=== PATIENT | female | born 1930 | race Caucasian/White ===

== ENCOUNTER 2017-03-11 20:00 | Emergency (ER) | payer MEDICARE, MEDICAID ==
[2017-03-11] MEDS ORDERED: Sodium Chloride 0.9% 10 ML Syringe FLUSH PRN (20:07)
[2017-03-11] MEDS ORDERED: Albuterol/Ipratropium 3.0-0.5 MG/3 ML Neb Soln ONE (20:08)
[2017-03-11] MEDS ORDERED: Midazolam 1 MG/ML 2 ML SDV ONE (20:08)
[2017-03-11] MEDS ORDERED: Succinylcholine 200 MG/10 ML MDV ONE (20:32)
[2017-03-11] MEDS ORDERED: fentaNYL 100 MCG/2 ML SDV IVPUSH ONE (21:20)
[2017-03-11] MEDS ORDERED: Midazolam 1 MG/ML 2 ML SDV IVPUSH ONE ×2 (21:20→21:24)
[2017-03-11] MEDS ORDERED: Rocuronium 50 MG/5 ML Vial IVPUSH ONE (21:24)
--- NOTE | 2017-03-11 21:27 | EDM.PDOC ---
ED HPI GENERAL MEDICAL PROBLEM - General Chief Complaint: Respiratory Problem Stated Complaint: ER Time Seen by Provider: 03/11/17 20:05 Source of Information: Reports: Patient, EMS Notes Reviewed, Family, RN, RN Notes Reviewed History Limitations: Reports: No Limitations - History of Present Illness INITIAL COMMENTS - FREE TEXT/NARRATIVE: Patient presents the emergency room at [facility] via EMS for worsening shortness of breath. The patient states that her shortness of breath began about one week ago and has progressively gotten worse. The EMS was called this evening as the patient felt she could not get enough air or breath. Patient denies any recent upper respiratory infections. The patient denies any chest pain. The patient complains of a dry nonproductive cough. The patient had not had any issues with nausea vomiting or diarrhea. The patient complains of lightheadedness and dizziness. The patient states that she feels like she cannot breathe. Onset: Today, Sudden - Related Data Allergies Allergy/AdvReac Type Severity Reaction Status Date / Time ADALID Inhibitors Allergy Cough Verified 09/20/14 07:01 amlodipine besylate Allergy Swelling Verified 09/23/15 14:51 [From Norvasc] sertraline HCl [From Zoloft] AdvReac Muscle Verified 09/20/14 07:01 Aches Home Meds: Home Meds Acetaminophen [Tylenol] 2 tab PO Q8H PRN 03/28/13 [History] Aspirin [Gualberto Chewable Aspirin] 81 mg PO DAILY 03/28/13 [History] Carvedilol [Coreg] 25 mg PO BID 03/28/13 [History] Cholecalciferol (Vitamin D3) [Vitamin D3] 2,000 unit PO DAILY 03/28/13 [History] Ferrous Gluconate 325 mg PO DAILY 03/28/13 [History] Insulin Detemir [Levemir Flexpen] 28 units SQ BID 03/28/13 [History] Levothyroxine Sodium [Levoxyl] 75 mcg PO DAILY 03/28/13 [History] Magnesium Hydroxide [Milk of Magnesia] 400 mg PO DAILY PRN 03/28/13 [History] Magnesium Oxide [Magnesium] 500 mg PO DAILY 03/28/13 [History] Nitroglycerin [Nitrostat] 0.4 mg SL ASDIRECTED PRN 03/28/13 [History] Omeprazole [Prilosec] 40 mg PO ACBREAKFAST 03/28/13 [History] Sennosides/Docusate Sodium [Penny-Colace] 1 each PO TID 03/28/13 [History] Terazosin [Hytrin] 2 mg PO BID 03/28/13 [History] Venlafaxine [Effexor XR] 75 mg PO DAILY 03/28/13 [History] atorvaSTATin [Lipitor] 40 mg PO BEDTIME 03/28/13 [History] Isosorbide Mononitrate [Imdur] 120 mg PO DAILY #30 tab.er 03/31/13 [Rx] Valsartan [Diovan] 320 mg PO DAILY #30 tablet 03/31/13 [Rx] Triamcinolone Acetonide [Triamcinolone Acetonide 0.1% Crm] 1 applic TOP BID [History] Acetaminophen with Codeine [Tylenol with Codeine #3 Tablet] 1 each PO BEDTIME PRN 03/25/14 [History] Gabapentin [Neurontin] 300 mg PO ACDIN 03/25/14 [History] Gabapentin [Neurontin] 600 mg PO BEDTIME 03/25/14 [History] Lactulose [Chronulac] 30 ml PO BID 03/25/14 [History] Nitroglycerin [Nitro-Dur 0.6 MG/Hr] 0.6 mg TRDERM DAILY 03/25/14 [History] amLODIPine [Norvasc] 5 mg PO DAILY 03/25/14 [History] Clopidogrel [Plavix] 75 mg PO DAILY 09/23/15 [History] Furosemide [Lasix] 40 mg PO DAILY 09/23/15 [History] Insulin Aspart [NovoLOG] 15 unit SUBCUT TIDMEALS 09/23/15 [History] Social & Family History - Tobacco Use Smoking Status *Q: Never Smoker Second Hand Smoke Exposure: Yes - Alcohol Use Days Per Week of Alcohol Use: 0 - Recreational Drug Use Recreational Drug Use: No ED ROS GENERAL - Review of Systems Review Of Systems: See Below Constitutional: Reports: Weakness. Denies: Fever, Chills Respiratory: Reports: Shortness of Breath, Cough Cardiovascular: Reports: Lightheadedness. Denies: Chest Pain, Palpitations GI/Abdominal: Denies: Abdominal Pain, Nausea, Vomiting Skin: Reports: No Symptoms Neurological: Reports: Dizziness. Denies: Headache, Numbness, Paresthesia, Tingling ED EXAM, GENERAL - Physical Exam Exam: See Below Exam Limited By: No Limitations General Appearance: Alert, Severe Distress, Obese Head: Atraumatic, Normocephalic Respiratory/Chest: Respiratory Distress, Decreased Breath Sounds, Retractions Cardiovascular: Regular Rate, Rhythm Peripheral Pulses: 1+: Radial (L), Radial (R) GI/Abdominal: Soft, Non-Tender, Abnormal Bowel Sounds (Hypoactive) Extremities: Pallor Neurological: Alert Psychiatric: Anxious Skin Exam: Cool, Pallor ED RESPIRATORY PROCEDURES - Endotracheal Intubation Time of Intubation: 20:38 ET Intubation Indication: Respiratory Failure Preparation: Suction, Balloon Tested, BVM Set Up, Difficult Airway Equip Airway Assessment: Obese Pre-Oxygenation: Assisted with BVM, 100% FiO2 Anesthesia Meds: Fentanyl, Midazolam, Succinylcholine Placement: Orotracheal Cords Visualized: Yes ETT Size In mm: 7.5 Number of Attempts: 1 Confirmed By: CO2 Indicator, Bilateral Breath Sounds Tube Secured By: Other (Radha Payton NRP) Endotracheal Intubation Comment: Patient intubated by Radha Payton Hospital Pharmacist. No complications. Intubated successfully on attempt 1. CXR for verification. Course - Orders/Labs/Meds Orders: Active Orders 24 hr Category Date Time Status EKG Documentation Completion [RC] STAT Care 03/11/17 20:07 Ordered Insert Urinary Catheter [OM.PC] Stat Care 03/11/17 21:30 Ordered Intubation [RT Airway Intubation] [RC] ASDIRECTED Care 03/11/17 21:26 Active Urinary Catheter Assessment [RC] ASDIRECTED Care 03/11/17 21:25 Active Chest 1V Frontal [CR] Stat Exams 03/11/17 20:07 Taken Sodium Chloride 0.9% [Saline Flush] Med 03/11/17 20:07 Active 10 ml FLUSH ASDIRECTED PRN ED Rapid Sequence Intubation Reflex [OM.PC] PER UNIT Oth 03/11/17 21:30 Ordered ROUTINE Peripheral IV Insertion Adult [OM.PC] Routine Oth 03/11/17 20:07 Ordered Medication Orders Sodium Chloride (Saline Flush) 10 ml FLUSH ASDIRECTED PRN PRN Reason: Keep Vein Open Labs: Laboratory Tests 03/11/17 03/11/17 03/11/17 Range/Units 20:32 20:50 20:50 WBC 7.7 (4.0-10.0) x10^3/uL RBC 3.80 L (4.00-5.50) x10^6/uL Hgb 11.9 L (12.0-16.0) g/dL Hct 36.8 (33.0-47.0) % MCV 96.8 H (78.0-93.0) fL MCH 31.3 (26.0-32.0) pg MCHC 32.3 (32.0-36.0) g/dL RDW Coeff of Carlin 13.6 (10.0-15.0) % Plt Count 227 D (130-400) x10^3/uL Neut % (Auto) 60.9 (50.0-80.0) % Lymph % (Auto) 29.1 (25.0-50.0) % Harris % (Auto) 7.1 (2.0-11.0) % Eos % (Auto) 2.6 (0.0-4.0) % Baso % (Auto) 0.3 (0.2-1.2) % POC ABG pH 7.003 L* (7.35-7.45) POC ABG pCO2 116 H* (35-45) mmHG POC ABG pO2 71 L (80-105) mmHG POC ABG HCO3 29 H (22-26) mmol/L POC ABG Total CO2 32 H (23-27) mmol/L POC ABG O2 Sat 81 L (95-98) % POC ABG Base Excess -3 L (-2-3) mmol/L POC FiO2 0.60 Sodium 139 (136-145) mmol/L Potassium 5.5 H (3.5-5.1) mmol/L Chloride 102 (98-107) mmol/L Carbon Dioxide 28 (21-32) mmol/L BUN 29 H (7-18) mg/dL Creatinine 1.4 H (0.55-1.02) mg/dL Est Cr Clr Drug Dosing TNP Estimated GFR (MDRD) 36 Glucose 417 H* (74-106) mg/dL Lactic Acid (0.4-2.0) mmol/L Calcium 8.0 L (8.5-10.1) mg/dL Corrected Calcium 8.48 L (8.5-10.1) mg/dL Total Bilirubin 0.2 (0.2-1.0) mg/dL AST 17 (15-37) U/L ALT 24 (14-59) U/L Alkaline Phosphatase 100 (46-116) U/L Creatine Kinase 107 (26-192) U/L Creatine Kinase Index 2.2 (0.0-4.0) % CK-MB (CK-2) 2.4 (0.0-3.6) ng/mL Troponin I 0.036 (<=0.056) ng/mL C-Reactive Protein < 0.2 (<=0.9) mg/dL NT-Pro-B Natriuret Pep 392 (<=450) pg/mL Total Protein 7.0 (6.4-8.2) g/dL Albumin 3.4 (3.4-5.0) g/dL Globulin 3.6 Albumin/Globulin Ratio 0.94 POC Result Comm Called critical res 03/11/17 Range/Units 20:50 WBC (4.0-10.0) x10^3/uL RBC (4.00-5.50) x10^6/uL Hgb (12.0-16.0) g/dL Hct (33.0-47.0) % MCV (78.0-93.0) fL MCH (26.0-32.0) pg MCHC (32.0-36.0) g/dL RDW Coeff of Carlin (10.0-15.0) % Plt Count (130-400) x10^3/uL Neut % (Auto) (50.0-80.0) % Lymph % (Auto) (25.0-50.0) % Harris % (Auto) (2.0-11.0) % Eos % (Auto) (0.0-4.0) % Baso % (Auto) (0.2-1.2) % POC ABG pH (7.35-7.45) POC ABG pCO2 (35-45) mmHG POC ABG pO2 (80-105) mmHG POC ABG HCO3 (22-26) mmol/L POC ABG Total CO2 (23-27) mmol/L POC ABG O2 Sat (95-98) % POC ABG Base Excess (-2-3) mmol/L POC FiO2 Sodium (136-145) mmol/L Potassium (3.5-5.1) mmol/L Chloride (98-107) mmol/L Carbon Dioxide (21-32) mmol/L BUN (7-18) mg/dL Creatinine (0.55-1.02) mg/dL Est Cr Clr Drug Dosing Estimated GFR (MDRD) Glucose (74-106) mg/dL Lactic Acid 2.6 H* (0.4-2.0) mmol/L Calcium (8.5-10.1) mg/dL Corrected Calcium (8.5-10.1) mg/dL Total Bilirubin (0.2-1.0) mg/dL AST (15-37) U/L ALT (14-59) U/L Alkaline Phosphatase (46-116) U/L Creatine Kinase (26-192) U/L Creatine Kinase Index (0.0-4.0) % CK-MB (CK-2) (0.0-3.6) ng/mL Troponin I (<=0.056) ng/mL C-Reactive Protein (<=0.9) mg/dL NT-Pro-B Natriuret Pep (<=450) pg/mL Total Protein (6.4-8.2) g/dL Albumin (3.4-5.0) g/dL Globulin Albumin/Globulin Ratio POC Result Comm Meds: Medications Generic Name Dose Route Start Last Admin Trade Name Frederick PRN Reason Stop Dose Admin Sodium Chloride 10 ml 03/11/17 20:07 Saline Flush FLUSH ASDIRECTED PRN Keep Vein Open Discontinued Medications Generic Name Dose Route Start Last Admin Trade Name Frederick PRN Reason Stop Dose Admin Fentanyl 100 mcg 03/11/17 21:20 Sublimaze IVPUSH 03/11/17 21:21 ONETIME ONE Midazolam HCl 2 mg 03/11/17 21:20 Versed 1 Mg/Ml IVPUSH 03/11/17 21:21 ONETIME ONE Midazolam HCl 2 mg 03/11/17 21:24 Versed 1 Mg/Ml IVPUSH 03/11/17 21:25 ONETIME ONE Rocuronium [place] 50 mg 03/11/17 21:24 Zemuron IVPUSH 03/11/17 21:25 ONETIME ONE Rocuronium [place] Confirm 03/11/17 21:37 Zemuron Administered 03/11/17 21:38 Dose 50 mg .ROUTE .STK-MED ONE Succinylcholine Chloride Confirm 03/11/17 20:32 Quelicin Administered 03/11/17 20:33 Dose 200 mg .ROUTE .STK-MED ONE - Re-Assessments/Exams Free Text/Narrative Re-Assessment/Exam: 03/11/17 20:38 Patient respiratory status declined requiring airway intubation. See nursing notes. Family at bedside. Risks and benefits discussed with family. They agreed with intubation. Departure - Departure Time of Disposition: 22:17 Disposition: DC/Tfer to [facility] 02 Condition: Fair Clinical Impression: Acute respiratory failure with hypercapnia - Discharge Information Forms: Interfacility Transfer [facility] ED Communication - ED Communication Date/Time Date: 03/11/17 Time Called: 22:06 - Discussed Case With (1) Discussed Case With (1): Admitting Provider (Dr. Davidson, ICU Plate Drying Machine Tender. Report Given. Patient accepted. Patient will be sent ALS ground.) - Conversation Summary Admitting Provider Agreed to Patient's Admission: Yes - Problem List Review Problem List Initiated/Reviewed/Updated: Yes - My Orders Last 24 Hours: My Active Orders 03/11/17 20:07 EKG Documentation Completion [RC] STAT Chest 1V Frontal [CR] Stat Sodium Chloride 0.9% [Saline Flush] 10 ml FLUSH ASDIRECTED PRN Peripheral IV Insertion Adult [OM.PC] Routine 03/11/17 21:25 Urinary Catheter Assessment [RC] ASDIRECTED 03/11/17 21:26 Intubation [RT Airway Intubation] [RC] ASDIRECTED 03/11/17 21:30 Insert Urinary Catheter [OM.PC] Stat ED Rapid Sequence Intubation Reflex [OM.PC] PER UNIT ROUTINE - Assessment/Plan Last 24 Hours: My Active Orders 03/11/17 20:07 EKG Documentation Completion [RC] STAT Chest 1V Frontal [CR] Stat Sodium Chloride 0.9% [Saline Flush] 10 ml FLUSH ASDIRECTED PRN Peripheral IV Insertion Adult [OM.PC] Routine 03/11/17 21:25 Urinary Catheter Assessment [RC] ASDIRECTED 03/11/17 21:26 Intubation [RT Airway Intubation] [RC] ASDIRECTED 03/11/17 21:30 Insert Urinary Catheter [OM.PC] Stat ED Rapid Sequence Intubation Reflex [OM.PC] PER UNIT ROUTINE Plan: Case discussed with Dr. Davidson, ICU academic administrator. The patient will be transferred to [facility] via ALS ground. Report was given by myself to the accepting provider. All questions answered. No further orders received.
[2017-03-11 21:37] LABS: CHLORIDE,CL 102 mmol/L (98-107); SODIUM,NA 139 mmol/L (136-145)
[2017-03-11] MEDS ORDERED: Rocuronium 50 MG/5 ML Vial ONE (21:37)
[2017-03-12] MEDS ORDERED: Midazolam 1 MG/ML 2 ML SDV ONE (00:39)
[2017-03-12] MEDS ORDERED: fentaNYL 100 MCG/2 ML SDV ONE (00:40)
== END 2017-03-11 22:31 | disposition short-term general hospital (02) ==
LOC: VM.ED 20:00
DX: J96.02 Acute respiratory failure with hypercapnia (principal); Z79.82 Long term (current) use of aspirin; Z79.899 Other long term (current) drug therapy; Z88.8 Allergy status to other drugs, medicaments and biological substances; Z77.22 Contact with and (suspected) exposure to environmental tobacco smoke (acute) (chronic)
CPT/HCPCS: 31500; 36415; 51702; 71045; 80053; 82550; 82553; 82803; 83605; 83880; 84484; 85025; 86140; 87804; 96365; 96366; 96375; 96376; 99285; 99291; 99292; J0330; J2250; J3010

== ENCOUNTER 2017-06-25 14:15 | Emergency (ER) | payer MEDICARE, MEDICAID ==
[2017-06-25] MEDS ORDERED: Sodium Chloride 0.9% 10 ML Syringe FLUSH PRN (14:27)
--- NOTE | 2017-06-25 14:27 | EDM.PDOC ---
ED HPI GENERAL MEDICAL PROBLEM - General Chief Complaint: Chest Pain Stated Complaint: CHEST PAIN Time Seen by Provider: 06/25/17 14:21 Source of Information: Reports: Patient, Family, RN, RN Notes Reviewed History Limitations: Reports: No Limitations - History of Present Illness INITIAL COMMENTS - FREE TEXT/NARRATIVE: Patient presents to the ED at [facility] with an acute onset of left upper chest pain that started earlier today. Patient states she was merely sitting and watching TV when the pain started. She states the pain has been on/off for the past couple of months. She is concerned because she has a history of acute MO within the past 6 moths. She is taking her home medications as directed. She describes the pain as sharp and stabbing. Patient does worsen with deep breathing. She denies any cough or SOB. She denies any radiation of the pain. Onset: Today, Sudden Onset Date: 06/25/17 Duration: Waxing/Waning Location: Reports: Chest (Left upper) Quality: Reports: Sharp, Stabbing Severity: Mild Improves with: Reports: Rest Worsens with: Reports: Breathing Context: Denies: Exercise, Sick Contact, Trauma Associated Symptoms: Reports: No Other Symptoms Treatments ORNAMENT SETTER: Reports: Other (see below) (None) Left Chest Pain Score (Numeric/FACES): 7 - Related Data Allergies Allergy/AdvReac Type Severity Reaction Status Date / Time ADALID Inhibitors Allergy Cough Verified 09/20/14 07:01 amlodipine besylate Allergy Swelling Verified 09/23/15 14:51 [From Norvasc] sertraline HCl [From Zoloft] AdvReac Muscle Verified 09/20/14 07:01 Aches Home Meds: Home Meds Acetaminophen [Tylenol] 2 tab PO Q8H PRN 03/28/13 [History] Aspirin [Gualberto Chewable Aspirin] 81 mg PO DAILY 03/28/13 [History] Carvedilol [Coreg] 25 mg PO BID 03/28/13 [History] Cholecalciferol (Vitamin D3) [Vitamin D3] 2,000 unit PO DAILY 03/28/13 [History] Ferrous Gluconate 325 mg PO DAILY 03/28/13 [History] Insulin Detemir [Levemir Flexpen] 28 units SQ BID 03/28/13 [History] Levothyroxine Sodium [Levoxyl] 75 mcg PO DAILY 03/28/13 [History] Magnesium Hydroxide [Milk of Magnesia] 400 mg PO DAILY PRN 03/28/13 [History] Magnesium Oxide [Magnesium] 500 mg PO DAILY 03/28/13 [History] Nitroglycerin [Nitrostat] 0.4 mg SL ASDIRECTED PRN 03/28/13 [History] Omeprazole [Prilosec] 40 mg PO ACBREAKFAST 03/28/13 [History] Sennosides/Docusate Sodium [Penny-Colace] 1 each PO TID 03/28/13 [History] Terazosin [Hytrin] 2 mg PO BID 03/28/13 [History] Venlafaxine [Effexor XR] 75 mg PO DAILY 03/28/13 [History] atorvaSTATin [Lipitor] 40 mg PO BEDTIME 03/28/13 [History] Isosorbide Mononitrate [Imdur] 120 mg PO DAILY #30 tab.er 03/31/13 [Rx] Valsartan [Diovan] 320 mg PO DAILY #30 tablet 03/31/13 [Rx] Triamcinolone Acetonide [Triamcinolone Acetonide 0.1% Crm] 1 applic TOP BID [History] Acetaminophen with Codeine [Tylenol with Codeine #3 Tablet] 1 each PO BEDTIME PRN 03/25/14 [History] Gabapentin [Neurontin] 300 mg PO ACDIN 03/25/14 [History] Gabapentin [Neurontin] 600 mg PO BEDTIME 03/25/14 [History] Lactulose [Chronulac] 30 ml PO BID 03/25/14 [History] Nitroglycerin [Nitro-Dur 0.6 MG/Hr] 0.6 mg TRDERM DAILY 03/25/14 [History] amLODIPine [Norvasc] 5 mg PO DAILY 03/25/14 [History] Clopidogrel [Plavix] 75 mg PO DAILY 09/23/15 [History] Furosemide [Lasix] 40 mg PO DAILY 09/23/15 [History] Insulin Aspart [NovoLOG] 15 unit SUBCUT TIDMEALS 09/23/15 [History] Social & Family History - Tobacco Use Smoking Status *Q: Never Smoker Second Hand Smoke Exposure: Yes - Alcohol Use Days Per Week of Alcohol Use: 0 - Recreational Drug Use Recreational Drug Use: No ED ROS GENERAL - Review of Systems Review Of Systems: See Below Constitutional: Denies: Fever, Chills, Weakness Respiratory: Denies: Shortness of Breath, Cough Cardiovascular: Reports: Chest Pain. Denies: Edema, Lightheadedness, Palpitations GI/Abdominal: Denies: Abdominal Pain, Nausea, Vomiting Musculoskeletal: Denies: Shoulder Pain, Back Pain Skin: Reports: No Symptoms Neurological: Reports: No Symptoms. Denies: Dizziness, Headache ED EXAM, GENERAL - Physical Exam Exam: See Below Exam Limited By: No Limitations General Appearance: Alert, No Apparent Distress Respiratory/Chest: No Respiratory Distress, Lungs Clear, Normal Breath Sounds, Other (Tenderness to left upper anterior chest wall; pain is reproducable) Cardiovascular: Normal Peripheral Pulses, Regular Rate, Rhythm Peripheral Pulses: 2+: Radial (L), Radial (R) GI/Abdominal: Normal Bowel Sounds, Soft, Non-Tender Back Exam: Normal Inspection Extremities: Normal Inspection Neurological: Alert, Oriented Skin Exam: Warm, Dry, Intact, Normal Color EKG INTERPRETATION EKG Date: 06/25/17 Time: 14:22 Rhythm: NSR Rate (Beats/Min): 58 [place]: Normal P-Wave: Present QRS: Normal ST-T: Normal QT: Normal KS/PQ Interval: 0.16 Comparison: No Change EKG Interpretation Comments: 1. Sinus Bradycardia 2. Moderate IVCD 3. Nonspecific T-wave abnormality Course - Vital Signs Last Recorded V/S: Last Vital Signs Temp 36.2 C 06/25/17 14:15 Pulse 62 06/25/17 14:15 Resp 16 06/25/17 14:15 BP 178/54 H 06/25/17 14:15 Pulse Ox 96 06/25/17 14:15 - Orders/Labs/Meds Labs: Laboratory Tests 06/25/17 06/25/17 06/25/17 Range/Units 14:34 14:34 14:34 WBC 6.3 (4.0-10.0) x10^3/uL RBC 3.75 L (4.00-5.50) x10^6/uL Hgb 11.6 L (12.0-16.0) g/dL Hct 35.4 (33.0-47.0) % MCV 94.4 H (78.0-93.0) fL MCH 30.9 (26.0-32.0) pg MCHC 32.8 (32.0-36.0) g/dL RDW Coeff of Carlin 13.6 (10.0-15.0) % Plt Count 225 (130-400) x10^3/uL Add Manual Diff Yes Neutrophils % (Manual) 75 (50-80) % Band Neutrophils % 4 (0-6) % Lymphocytes % (Manual) 15 L (25-50) % Monocytes % (Manual) 1 L (2-11) % Eosinophils % (Manual) 4 (0-4) % Metamyelocytes % 1 H (0) % Platelet Estimate Adequate PT 9.9 (9.6-11.4) SEC INR 0.9 L (2.0-3.5) D-Dimer, Quantitative 2.11 H (<=0.58) mg/LFEU Sodium 135 L (136-145) mmol/L Potassium 4.6 (3.5-5.1) mmol/L Chloride 100 (98-107) mmol/L Carbon Dioxide 27 (21-32) mmol/L Anion Gap 12.6 (10-20) mmol/L BUN 18 (7-18) mg/dL Creatinine 1.2 H (0.55-1.02) mg/dL Est Cr Clr Drug Dosing TNP Estimated GFR (MDRD) 43 Glucose 383 H (74-106) mg/dL Calcium 8.2 L (8.5-10.1) mg/dL Corrected Calcium 8.92 (8.5-10.1) mg/dL Total Bilirubin 0.3 (0.2-1.0) mg/dL AST 18 (15-37) U/L ALT 25 (14-59) U/L Alkaline Phosphatase 92 (46-116) U/L Creatine Kinase 58 (26-192) U/L Troponin I < 0.017 (<=0.056) ng/mL Total Protein 6.8 (6.4-8.2) g/dL Albumin 3.1 L (3.4-5.0) g/dL Globulin 3.7 g/dL Albumin/Globulin Ratio 0.84 Meds: Medications Discontinued Medications Generic Name Dose Route Start Last Admin Trade Name Freq PRN Reason Stop Dose Admin Sodium Chloride 10 ml 06/25/17 14:27 Saline Flush FLUSH ASDIRECTED PRN Keep Vein Open - Radiology Interpretation Free Text/Narrative:: CXR: Left 5th rib fracture, age undetermined See scanned report in EMR Departure - Departure Time of Disposition: 16:09 Disposition: Home, Self-Care 01 Reason for Transfer *Q: Other Condition: Good Clinical Impression: Rib fracture Qualifiers: Encounter type: initial encounter Rib fracture type: single rib Fracture type: closed Laterality: left Qualified Code(s): S22.32XA - Fracture of one rib, left side, initial encounter for closed fracture Instructions: Rib Fracture Referrals: Kami Hernandez, [Primary Care Provider] - Forms: ED Department Discharge Additional Instructions: 1. Stay well hydrated and rest 2. Take extra precautions to not fall or re-injure the ribs 3. Take deep breaths as able to help prevent pneumonia, etc. 4. May take Tylenol for pain; try warm heating pad 5. See your Primary as symptoms warrant 6. Call us with any questions/concerns - Problem List Review Problem List Initiated/Reviewed/Updated: Yes - Assessment/Plan Assessment:: Left fifth rib fracture Plan: Xray and labs discussed with patient. She does not remember any trauma to the chest, but states it is possible. She has had a couple of falls over the past month or so. I did discuss the elevated D-Dimer with the patient and possibility of a blood clot. Patient declined to have a CT of her chest done. I recommended she visit with her PCP about this, she verbalized understanding. Discussed routine pathology of fracture and normal coarse of healing. Recommend repeat xray in 6-8 weeks to check for healing. See PCP as symptoms warrant.
[2017-06-25 14:54] VITALS: BP 178/54
[2017-06-26 09:48] LABS: CHLORIDE,CL 100 mmol/L (98-107); SODIUM,NA 135 mmol/L (136-145)
== END 2017-06-25 16:15 | disposition home or self-care (01) ==
LOC: VM.ED 14:15
DX: S22.32XA Fracture of one rib, left side, initial encounter for closed fracture (principal); Z79.899 Other long term (current) drug therapy; Z79.82 Long term (current) use of aspirin; Z79.4 Long term (current) use of insulin; X58.XXXA Exposure to other specified factors, initial encounter
CPT/HCPCS: 36415; 71046; 80053; 82550; 84484; 85025; 85379; 85610; 93005; 99285

== ENCOUNTER 2017-08-11 11:36 | Emergency (ER) | payer MEDICARE, MEDICAID ==
[2017-08-11 11:39] VITALS: BP 163/41
--- NOTE | 2017-08-11 12:01 | EDM.PDOC ---
ED HPI GENERAL MEDICAL PROBLEM - General Chief Complaint: General Stated Complaint: BLACK TOE Time Seen by Provider: 08/11/17 11:48 Source of Information: Reports: Patient, RN, RN Notes Reviewed History Limitations: Reports: No Limitations - History of Present Illness INITIAL COMMENTS - FREE TEXT/NARRATIVE: Patient presents to the ED at [facility] with concerns of a toe infection. Patient states she noticed the tip of the 2nd digit on the right foot is black. She recently was seen by Podiatry. She states the [employer] may have nicked the skin. She denies any pain to the affected site. No trouble with ambulation. No fevers or chills. Patient states she just noticed the spot on her toe this AM. She is not sure how long it has been there. Onset: Unknown/Unsure Left 2-Long toe Pain Score (Numeric/FACES): 9 - Related Data Allergies Allergy/AdvReac Type Severity Reaction Status Date / Time ADALID Inhibitors Allergy Cough Verified 08/11/17 11:38 amlodipine besylate Allergy Swelling Verified 08/11/17 11:38 [From Norvasc] sertraline HCl [From Zoloft] AdvReac Muscle Verified 08/11/17 11:38 Aches Home Meds: Home Meds Acetaminophen [Tylenol] 2 tab PO Q8H PRN 03/28/13 [History] Aspirin [Gualberto Chewable Aspirin] 81 mg PO DAILY 03/28/13 [History] Carvedilol [Coreg] 25 mg PO BID 03/28/13 [History] Cholecalciferol (Vitamin D3) [Vitamin D3] 2,000 unit PO DAILY 03/28/13 [History] Ferrous Gluconate 325 mg PO DAILY 03/28/13 [History] Insulin Detemir [Levemir Flexpen] 28 units SQ BID 03/28/13 [History] Levothyroxine Sodium [Levoxyl] 75 mcg PO DAILY 03/28/13 [History] Magnesium Hydroxide [Milk of Magnesia] 400 mg PO DAILY PRN 03/28/13 [History] Magnesium Oxide [Magnesium] 500 mg PO DAILY 03/28/13 [History] Nitroglycerin [Nitrostat] 0.4 mg SL ASDIRECTED PRN 03/28/13 [History] Omeprazole [Prilosec] 40 mg PO ACBREAKFAST 03/28/13 [History] Sennosides/Docusate Sodium [Penny-Colace] 1 each PO TID 03/28/13 [History] Terazosin [Hytrin] 2 mg PO BID 03/28/13 [History] Venlafaxine [Effexor XR] 75 mg PO DAILY 03/28/13 [History] atorvaSTATin [Lipitor] 40 mg PO BEDTIME 03/28/13 [History] Isosorbide Mononitrate [Imdur] 120 mg PO DAILY #30 tab.er 03/31/13 [Rx] Valsartan [Diovan] 320 mg PO DAILY #30 tablet 03/31/13 [Rx] Triamcinolone Acetonide [Triamcinolone Acetonide 0.1% Crm] 1 applic TOP BID [History] Acetaminophen with Codeine [Tylenol with Codeine #3 Tablet] 1 each PO BEDTIME PRN 03/25/14 [History] Gabapentin [Neurontin] 300 mg PO ACDIN 03/25/14 [History] Gabapentin [Neurontin] 600 mg PO BEDTIME 03/25/14 [History] Lactulose [Chronulac] 30 ml PO BID 03/25/14 [History] Nitroglycerin [Nitro-Dur 0.6 MG/Hr] 0.6 mg TRDERM DAILY 03/25/14 [History] amLODIPine [Norvasc] 5 mg PO DAILY 03/25/14 [History] Clopidogrel [Plavix] 75 mg PO DAILY 09/23/15 [History] Furosemide [Lasix] 40 mg PO DAILY 09/23/15 [History] Insulin Aspart [NovoLOG] 15 unit SUBCUT TIDMEALS 09/23/15 [History] Cephalexin [Keflex] 1 cap PO Q12H 7 Days #14 capsule 08/11/17 [Rx] Social & Family History - Tobacco Use Smoking Status *Q: Never Smoker - Recreational Drug Use Recreational Drug Use: No ED ROS GENERAL - Review of Systems Review Of Systems: See Below Constitutional: Denies: Fever, Chills, Weakness Respiratory: Denies: Shortness of Breath, Cough Cardiovascular: Denies: Chest Pain, Palpitations Skin: Reports: Change in Color (2nd digit right foot) Neurological: Reports: No Symptoms. Denies: Numbness, Paresthesia, Tingling ED EXAM, GENERAL - Physical Exam Exam: See Below Exam Limited By: No Limitations General Appearance: Alert, No Apparent Distress Respiratory/Chest: No Respiratory Distress, Lungs Clear, Normal Breath Sounds Cardiovascular: Normal Peripheral Pulses, Regular Rate, Rhythm Peripheral Pulses: 2+: Radial (L), Radial (R) Extremities: Normal Inspection Neurological: Alert, Oriented Skin Exam: Warm, Dry, Intact, Normal Color, Other (Patient has what looks like a blood blister on the tip of the 2nd digit right foot; no evidence of infection ; no drainage; area is slightly tender to palpation; rest of toe/foot normal) Course - Vital Signs Last Recorded V/S: Last Vital Signs Temp 35.1 C L 08/11/17 11:38 Pulse 58 L 08/11/17 11:38 Resp 18 08/11/17 11:38 BP 163/41 H 08/11/17 11:38 Pulse Ox 99 08/11/17 11:38 Departure - Departure Time of Disposition: 12:01 Disposition: Home, Self-Care 01 Condition: Good Clinical Impression: Blood blister - Discharge Information Prescriptions: Cephalexin [Keflex] 1 cap PO Q12H 7 Days #14 capsule Instructions: Cephalexin tablets or capsules Referrals: Kami Hernandez DO [Primary Care Provider] - Additional Instructions: 1. Stay well hydrated and rest 2. Take antibiotics for the full coarse, even if you are feeling better 3. May soak right foot in Epsom salt couple times a day for the next few days 4. If skin breaks open, cover with a bandaid 5. See Dr. Hernandez in clinic next week for a recheck 6. Call us with any questions or concerns - Problem List Review Problem List Initiated/Reviewed/Updated: Yes
== END 2017-08-11 12:22 | disposition home or self-care (01) ==
LOC: VM.ED 11:36
DX: S90.424A Blister (nonthermal), right lesser toe(s), initial encounter (principal); X58.XXXA Exposure to other specified factors, initial encounter; Z88.8 Allergy status to other drugs, medicaments and biological substances; Z88.2 Allergy status to sulfonamides
CPT/HCPCS: 99283

== ENCOUNTER 2019-07-15 05:21 | Emergency (ER) | payer MEDICARE, MEDICAID, OTHER ==
[~2019-07-15 05:21] MED LIST: Albuterol/Ipratropium 3.0-0.5 MG/3 ML Neb Soln ONE; Etomidate 2 MG/ML 10 ML SDV ONE; fentaNYL 100 MCG/2 ML SDV ONE
[2019-07-15] MEDS ORDERED: Furosemide 40 MG/4 ML VIAL ONE (05:47)
[2019-07-15] MEDS ORDERED: Sodium Chloride 0.9% 10 ML Syringe FLUSH PRN (05:55)
[2019-07-15] MEDS ORDERED: Sodium Chloride 0.9% 1,000 ML IV ONE (06:17)
[2019-07-15] MEDS ORDERED: Succinylcholine 200 MG/10 ML MDV ONE (06:18)
[2019-07-15] MEDS ORDERED: cefTRIAXone 1 GM Vial IVPUSH ONE (06:25)
[2019-07-15 06:31] LABS: CHLORIDE,CL 103 mmol/L (98-107); SODIUM,NA 142 mmol/L (136-145)
[2019-07-15 06:34] LABS: ANION GAP 9.3 mmol/L (10-20)
[2019-07-15] MEDS ORDERED: cefTRIAXone 1 GM Vial ONE (06:34)
--- NOTE | 2019-07-15 06:35 | EDM.PDOC ---
ED HPI GENERAL MEDICAL PROBLEM - General Chief Complaint: Respiratory Problem Stated Complaint: Shortness of Breath Time Seen by Provider: 07/15/19 05:21 Source of Information: Reports: EMS, EMS Notes Reviewed History Limitations: Reports: Respiratory Distress - History of Present Illness INITIAL COMMENTS - FREE TEXT/NARRATIVE: Patient comes into the emergency department via EMS with shortness of breath. She called her son who noticed that she was unable to speak full sentences on the phone and was concerned and had the patient called 911. Upon arrival of EMS they found that the patient's oxygen saturation was in the 80s and was breathing in the 40s. Patient was not able to speak full sentences. They did try her on a nasal cannula but were unable to get her oxygen saturations greater than 86%. They ended up placing her on BiPAP prior to arrival. The patient's respiratory rate remained in the 30s?40s. Patient continued to have accessory muscle use and was not alert and responding to questions appropriately any longer due to being tired and fatigued. EMS also checked a twelve-lead EKG prior to arrival with no ST elevation noted. They did attempt IV x3 and did not have any success prior to arrival. They did try DuoNeb prior to the patient arriving to the emergency department as well. The son that the patient had been complaining last couple days of increased shortening of breath at home. Denies her being around any ill individuals, leaving the house, or having any recent fevers. Covid-19 screening negative. Onset: Sudden, Gradual Improves with: Reports: None Worsens with: Reports: None Associated Symptoms: Reports: No Other Symptoms - Related Data Allergies Allergy/AdvReac Type Severity Reaction Status Date / Time amlodipine besylate Allergy Swelling Verified 12/04/17 02:29 [From Norvasc] ADALID Inhibitors AdvReac Cough Verified 01/16/18 14:11 sertraline HCl [From Zoloft] AdvReac Muscle Verified 12/04/17 02:29 Aches Home Meds: Home Meds Acetaminophen [Tylenol] 2 tab PO Q8H PRN 03/28/13 [History] Aspirin [Gualberto Chewable Aspirin] 81 mg PO DAILY 03/28/13 [History] Cholecalciferol (Vitamin D3) [Vitamin D3] 2,000 unit PO DAILY 03/28/13 [History] Ferrous Gluconate 325 mg PO ASDIRECTED 03/28/13 [History] Insulin Detemir [Levemir Flexpen] 28 units SQ BID 03/28/13 [History] Levothyroxine Sodium [Levoxyl] 75 mcg PO DAILY 03/28/13 [History] Magnesium Hydroxide [Milk of Magnesia] 400 mg PO DAILY PRN 03/28/13 [History] Magnesium Oxide [Magnesium] 500 mg PO DAILY 03/28/13 [History] Nitroglycerin [Nitrostat] 0.4 mg SL ASDIRECTED PRN 03/28/13 [History] Omeprazole [Prilosec] 40 mg PO ACBREAKFAST 03/28/13 [History] Sennosides/Docusate Sodium [Penny-Colace] 2 each PO BID PRN 03/28/13 [History] Terazosin [Hytrin] 2 mg PO BID 03/28/13 [History] Venlafaxine [Effexor XR] 75 mg PO DAILY 03/28/13 [History] atorvaSTATin [Lipitor] 40 mg PO BEDTIME 03/28/13 [History] carvediloL [Coreg] 25 mg PO BID 03/28/13 [History] Isosorbide Mononitrate [Imdur] 120 mg PO DAILY #30 tab.er 03/31/13 [Rx] Valsartan [Diovan] 320 mg PO DAILY #30 tablet 03/31/13 [Rx] Triamcinolone Acetonide [Triamcinolone Acetonide 0.1% Crm] 1 applic TOP BID [History] Gabapentin [Neurontin] 300 mg PO ACDIN 03/25/14 [History] Gabapentin [Neurontin] 600 mg PO BEDTIME 03/25/14 [History] Lactulose [Chronulac] 30 ml PO BID 03/25/14 [History] Nitroglycerin [Nitro-Dur 0.6 MG/Hr] 0.6 mg TRDERM DAILY 03/25/14 [History] amLODIPine [Norvasc] 5 mg PO DAILY 03/25/14 [History] Clopidogrel [Plavix] 75 mg PO DAILY 09/23/15 [History] Furosemide [Lasix] 80 mg PO DAILY 09/23/15 [History] Insulin Aspart [NovoLOG] 10 unit SUBCUT TIDMEALS 09/23/15 [History] cephALEXin [Keflex] 1 cap PO Q12H 7 Days #14 capsule 08/11/17 [Rx] Acetaminophen with Codeine [Acetaminophen-Cod #3] 1 each PO BEDTIME 01/16/18 [ History] Famotidine 10 mg PO BEDTIME 01/16/18 [History] Insulin Degludec [Tresiba Flextouch U-100] 24 unit SQ DAILY 01/16/18 [History] Olmesartan [Benicar] 40 mg PO BEDTIME 01/16/18 [History] Pramipexole [Mirapex] 0.125 mg PO BEDTIME 01/16/18 [History] Past Medical History HEENT History: Reports: Other (See Below) Other HEENT History: DM retinopathy Cardiovascular History: Reports: CAD, Heart Failure, High Cholesterol, Hypertension, DE, PVD, SOB on Exertion Other Cardiovascular History: Stent in Mar, 2017. Respiratory History: Reports: SOB, Other (See Below) Other Respiratory History: Nocturnal hypoxemia Gastrointestinal History: Reports: Chronic Constipation, GERD, Other (See Below) Other Gastrointestinal History: Rectal bleed Genitourinary History: Reports: Diabetic Nephropathy Musculoskeletal History: Reports: Back Pain, Chronic, Osteoarthritis Other Musculoskeletal History: Restless legs. Periodic limb movement disorder Neurological History: Reports: Neuropathy, Diabetic Psychiatric History: Reports: Depression, Other (See Below) Other Psychiatric History: Memory loss Endocrine/Metabolic History: Reports: Diabetes, Type II, Hypothyroidism Hematologic History: Reports: Anemia Oncologic (Cancer) History: Reports: Basal Cell Carcinoma - Past Surgical History Cardiovascular Surgical History: Reports: Coronary Artery Bypass, Coronary Artery Stent Musculoskeletal Surgical History: Reports: Shoulder Surgery ED ROS GENERAL - Review of Systems Review Of Systems: Unable To Obtain Reason Not Obtained: due to resp distress and patient condition ED EXAM, GENERAL - Physical Exam Exam: See Below Exam Limited By: Respiratory Distress General Appearance: Lethargic, Obtunded, Severe Distress Ears: Normal External Exam, Normal Canal, Hearing Grossly Normal Nose: Normal Inspection, Normal Mucosa, No Blood Throat/Mouth: Normal Inspection, Normal Lips, No Airway Compromise Head: Atraumatic, Normocephalic Neck: Normal Inspection, Supple, Non-Tender Respiratory/Chest: Respiratory Distress, Decreased Breath Sounds, Crackles, Rhonchi, Wheezing, Accessory Muscle Use, Retractions Extremities: Slow Capillary Refill, Mottled, Pallor Neurological: Disoriented Skin Exam: Cool, Diaphoretic, Mottled, Pallor ED RESPIRATORY PROCEDURES - Endotracheal Intubation Time of Intubation: 06:19 ET Intubation Indication: Respiratory Failure Preparation: Suction, Balloon Tested, BVM Set Up, Difficult Airway Equip Airway Assessment: Obese, Large Tongue Pre-Oxygenation: Assisted with BVM, 100% FiO2 Anesthesia Meds: Etomidate, Fentanyl, Rocuronium, Succinylcholine, Vecuronium Placement: Orotracheal, Cuffed Cords Visualized: Grade 2 ETT Size In mm: 8 Number of Attempts: 1 Confirmed By: CO2 Indicator, Bilateral Breath Sounds, Chest Xray (ET tube retracted 1.5cm after post intubation xray. 24.5cm at the lips ) Tube Secured By: By Provider Endotracheal Intubation Comment: no difficulties noted. [employer] correctional food service supervisor called at 05:51. Multiple attempts with Voicemail left on numbers available. [employer] call back at 6:43. RT contacted however unsuccessful as well and RT was not correctional food service supervisor. Course - Orders/Labs/Meds Orders: Active Orders 24 hr Category Date Time Status RASS Sedation Scale [RC] ASDIRECTED Care 07/15/19 13:48 Active RT Ventilator, Adult [RC] ASDIRECTED Care 07/15/19 13:48 Active Labs: Laboratory Tests 07/15/19 07/15/19 07/15/19 Range/Units 05:45 05:45 05:45 WBC 9.7 (4.0-10.0) x10^3/uL RBC 4.00 (4.00-5.50) x10^6/uL Hgb 12.1 (12.0-16.0) g/dL Hct 38.0 (33.0-47.0) % MCV 95.0 H (78.0-93.0) fL MCH 30.3 (26.0-32.0) pg MCHC 31.8 L (32.0-36.0) g/dL RDW Coeff of Carlin 13.8 (10.0-15.0) % Plt Count 258 (130-400) x10^3/uL Neut % (Auto) 65.4 (50.0-80.0) % Lymph % (Auto) 23.8 L (25.0-50.0) % Canadian % (Auto) 8.3 (2.0-11.0) % Eos % (Auto) 2.3 (0.0-4.0) % Baso % (Auto) 0.2 (0.2-1.2) % Sample Site POC ABG pH (7.35-7.45) POC ABG pCO2 (35-45) mmHG POC ABG pO2 (80-105) mmHG POC ABG HCO3 (22-26) mmol/L POC ABG O2 Sat (95-98) % POC ABG Base Excess (-2-3) mmol/L POC FiO2 Sodium 142 (136-145) mmol/L Potassium 4.3 (3.5-5.1) mmol/L Chloride 103 (98-107) mmol/L Carbon Dioxide 34 H (21-32) mmol/L Anion Gap 9.3 L (10-20) mmol/L BUN 19 H (7-18) mg/dL Creatinine 0.9 (0.55-1.02) mg/dL Est Cr Clr Drug Dosing TNP Estimated GFR (MDRD) 59 Glucose 258 H (74-106) mg/dL Lactic Acid 0.9 (0.4-2.0) mmol/L Calcium 8.3 L (8.5-10.1) mg/dL Corrected Calcium 8.86 (8.5-10.1) mg/dL Total Bilirubin 0.3 (0.2-1.0) mg/dL AST 19 (15-37) U/L ALT 21 (14-59) U/L Alkaline Phosphatase 99 (46-116) U/L Creatine Kinase 103 (26-192) U/L Troponin I < 0.017 (<=0.056) ng/mL NT-Pro-B Natriuret Pep 631 H (<=450) pg/mL Total Protein 7.2 (6.4-8.2) g/dL Albumin 3.3 L (3.4-5.0) g/dL Globulin 3.9 Albumin/Globulin Ratio 0.85 POC Result Comm SARS-CoV-2 RNA (RT-PCR) (NEGATIVE) 07/15/19 07/15/19 Range/Units 05:45 05:50 WBC (4.0-10.0) x10^3/uL RBC (4.00-5.50) x10^6/uL Hgb (12.0-16.0) g/dL Hct (33.0-47.0) % MCV (78.0-93.0) fL MCH (26.0-32.0) pg MCHC (32.0-36.0) g/dL RDW Coeff of Carlin (10.0-15.0) % Plt Count (130-400) x10^3/uL Neut % (Auto) (50.0-80.0) % Lymph % (Auto) (25.0-50.0) % Canadian % (Auto) (2.0-11.0) % Eos % (Auto) (0.0-4.0) % Baso % (Auto) (0.2-1.2) % Sample Site Rt radial POC ABG pH 7.306 L (7.35-7.45) POC ABG pCO2 65 H* (35-45) mmHG POC ABG pO2 80 (80-105) mmHG POC ABG HCO3 32 H (22-26) mmol/L POC ABG O2 Sat 94 L (95-98) % POC ABG Base Excess 6 H (-2-3) mmol/L POC FiO2 0.90 Sodium (136-145) mmol/L Potassium (3.5-5.1) mmol/L Chloride (98-107) mmol/L Carbon Dioxide (21-32) mmol/L Anion Gap (10-20) mmol/L BUN (7-18) mg/dL Creatinine (0.55-1.02) mg/dL Est Cr Clr Drug Dosing Estimated GFR (MDRD) Glucose (74-106) mg/dL Lactic Acid (0.4-2.0) mmol/L Calcium (8.5-10.1) mg/dL Corrected Calcium (8.5-10.1) mg/dL Total Bilirubin (0.2-1.0) mg/dL AST (15-37) U/L ALT (14-59) U/L Alkaline Phosphatase (46-116) U/L Creatine Kinase (26-192) U/L Troponin I (<=0.056) ng/mL NT-Pro-B Natriuret Pep (<=450) pg/mL Total Protein (6.4-8.2) g/dL Albumin (3.4-5.0) g/dL Globulin Albumin/Globulin Ratio POC Result Comm Called critical res SARS-CoV-2 RNA (RT-PCR) Negative (NEGATIVE) Meds: Medications Discontinued Medications Generic Name Dose Route Start Last Admin Trade Name Loganq PRN Reason Stop Dose Admin Ceftriaxone Sodium 1 gm 07/15/19 06:25 Rocephin IVPUSH 07/15/19 06:26 ONETIME ONE Ceftriaxone Sodium Confirm 07/15/19 06:34 Rocephin Administered 07/15/19 06:35 Dose 1 gm .ROUTE .STK-MED ONE Furosemide Confirm 07/15/19 05:47 Lasix Administered 07/15/19 05:48 Dose 80 mg .ROUTE .STK-MED ONE Midazolam HCl Confirm 07/15/19 06:50 Versed 1 Mg/Ml Administered 07/15/19 06:51 Dose 6 mg .ROUTE .STK-MED ONE Rocuronium [place] Confirm 07/15/19 06:49 Zemuron Administered 07/15/19 06:50 Dose 100 mg .ROUTE .STK-MED ONE Sodium Chloride 10 ml 07/15/19 05:55 Saline Flush FLUSH ASDIRECTED PRN Keep Vein Open Succinylcholine Chloride Confirm 07/15/19 06:18 Quelicin Administered 07/15/19 06:19 Dose 200 mg .ROUTE .STK-MED ONE Departure - Departure Time of Disposition: 06:45 Disposition: DC/Tfer to Acute Hospital 02 Condition: Critical Clinical Impression: Congenital heart disease in adult, COPD exacerbation Pneumonia Qualifiers: Pneumonia type: due to unspecified organism Laterality: bilateral Lung location : unspecified part of lung Qualified Code(s): J18.9 - Pneumonia, unspecified organism Respiratory failure Qualifiers: Chronicity: acute Respiratory failure complication: hypoxia and hypercapnia Qualified Code(s): J96.01 - Acute respiratory failure with hypoxia - Discharge Information *PRESCRIPTION DRUG MONITORING PROGRAM REVIEWED*: Not Applicable *COPY OF PRESCRIPTION DRUG MONITORING REPORT IN PATIENT FELIZ: Not Applicable Referrals: Kami Hernandez DO [Primary Care Provider] - Forms: ED Department Discharge Sepsis Event Note - Focused Exam Date Exam was Performed: 07/16/19 Time Exam was Performed: 08:57 - My Orders Last 24 Hours: My Active Orders 07/15/19 13:48 RASS Sedation Scale [RC] ASDIRECTED RT Ventilator, Adult [RC] ASDIRECTED - Assessment/Plan Last 24 Hours: My Active Orders 07/15/19 13:48 RASS Sedation Scale [RC] ASDIRECTED RT Ventilator, Adult [RC] ASDIRECTED Assessment:: 1. respiratory failure 2. COPD exacerbation 3. CHF exacerbation 4. Pneumonia Plan: 1. Labs completed in the ER. Results reviewed with the patient 2. IV initiated in the emergency department- multiple attempts via EMS and nursing staff 3. IV fluids provided 4. Chest xray completed in ER. Results reviewed with family. Post intubation Xray completed as well 5. ABG completed at the bedside 6. BIPAP attempt for 30 minutes with no improvement 7. Lasix 80mg IV 8. Duoneb given in the ER. (EMS completed 1 prior to arrival) 9. Solumedrol 125mg IV given via EMS on exit 10. Family updated the patient's condition. Family would like all measures the patient. Patient was intubated with no difficulty-please see above record for specific information (medication utilized were 100mcg Fentanyl, Etomidate 20mg, Succinylcholine 100mcg, post sedation Rocuronium 50mg, versed 4mg). 11. Rocephin 1gm IV given in ER 12. Health intensive care department contacted regarding emergent transfer the patient. Acceptance was completed by Dr. Vinson for further medical management 13. Covid-19 testing negative 14. blood cultures were not able to be obtained via lab staff difficulties 15. Vent setting Rate 12, TV 400, FIO2 90% Peep 5. 16. Weber cath placed prior to discharge 17. Family and nursing staff was updated regarding the plan of care 18. All questions and concerns were addressed with the patient and family prior to discharge
[2019-07-15] MEDS ORDERED: Rocuronium 50 MG/5 ML Vial ONE (06:49)
[2019-07-15] MEDS ORDERED: Midazolam 1 MG/ML 2 ML SDV ONE (06:50)
--- NOTE | 2019-07-15 07:59 | CR ---
[id number] RAD/RAD Chest PA or AP 1V EXAM: SINGLE VIEW CHEST. INDICATION: INTUBATED PATIENT COMPARISON: CORRELATION IS MADE WITH THE EARLIER EXAM TODAY FINDINGS: The ET tube is in good position Bilateral infiltrates consistent with edema are seen The cardiac silhouette is stable IMPRESSION: ET TUBE IN GOOD POSITION Ronak Roth MD 07/15/19 0758 Thank you for allowing us to participate in the care of your patient.
--- NOTE | 2019-07-15 08:00 | CR ---
[id number] RAD/RAD Chest PA or AP 1V EXAM: SINGLE VIEW CHEST. INDICATION: SHORTNESS OF BREATH COMPARISON: CORRELATION IS MADE WITH DECEMBER 04, 2017 FINDINGS: Moderate edema is seen Cardiac surgical changes are identified The cardiac silhouette is enlarged IMPRESSION: MODERATE CHF Ronak Roth MD 07/15/19 0758 Thank you for allowing us to participate in the care of your patient.
== END 2019-07-15 06:59 | disposition short-term general hospital (02) ==
LOC: VM.ED 05:21
DX: J44.0 Chronic obstructive pulmonary disease with (acute) lower respiratory infection (principal); J18.9 Pneumonia, unspecified organism; J44.1 Chronic obstructive pulmonary disease with (acute) exacerbation; I11.0 Hypertensive heart disease with heart failure; I50.9 Heart failure, unspecified; I25.10 Atherosclerotic heart disease of native coronary artery without angina pectoris; E78.00 Pure hypercholesterolemia, unspecified; K21.9 Gastro-esophageal reflux disease without esophagitis; E11.21 Type 2 diabetes mellitus with diabetic nephropathy; G25.81 Restless legs syndrome; E03.9 Hypothyroidism, unspecified; M19.90 Unspecified osteoarthritis, unspecified site; E11.319 Type 2 diabetes mellitus with unspecified diabetic retinopathy without macular edema; E11.51 Type 2 diabetes mellitus with diabetic peripheral angiopathy without gangrene; I25.2 Old myocardial infarction; E11.40 Type 2 diabetes mellitus with diabetic neuropathy, unspecified; Z79.82 Long term (current) use of aspirin; Z79.4 Long term (current) use of insulin; Z79.01 Long term (current) use of anticoagulants; Z79.899 Other long term (current) drug therapy; Z88.8 Allergy status to other drugs, medicaments and biological substances; Z20.828 Contact with and (suspected) exposure to other viral communicable diseases
CPT/HCPCS: 31500; 36415; 36600; 51702; 71045; 80053; 82550; 82803; 83605; 83880; 84484; 85025; 93005; 94002; 94640; 96361; 96374; 96375; 99285; J0330; J0696; J1940; J2250; J3010; J3490; J7030; U0002; J7620-GY